=== PATIENT | male | born 1960 | race Hispanic/Latino ===

== ENCOUNTER 2016-06-10 14:41 | Outpatient (CLI) | payer OTHER ==
[2016-06-10 15:10] LABS: Hemoglobin A1c 6.4 % (4.0-6.0)
[2016-06-10 15:17] LABS: ALT (SGPT) 11 U/L (0-55); AST (SGOT) 13 U/L (5-34); Alkaline Phosphatase 56 U/L (40-150); Anion Gap 12 mmol/L (10-20); BUN (Urea Nitrogen) 16 mg/dL (8.4-25.7); Bilirubin, Total 0.3 mg/dL (0.2-1.2); Calc. Creatinine Clearance 0 mL/min (70-130); Calcium 9.1 mg/dL (7.8-10.44); Carbon Dioxide 25 mmol/L (22-29); Chloride 111 mmol/L (98-107); Estimated GFR-MDRD Greater than 90; Globulin 2.9 g/dL (2.4-3.5); LDL Cholesterol, Calculated 109 mg/dL
[2016-06-10 15:31] LABS: #Basophils 0.1 thou/uL (0.0-0.2); #Eosinphils 0.1 thou/uL (0.0-0.7); #Lymphocytes 1.5 thou/uL (1.20-3.40); #Monocytes 0.2 thou/uL (0.11-0.59); #Neutrophils 4.1 thou/uL (1.40-6.50); %Basophils 0.9 % (0.0-1.0); %Eosinophils 2.1 % (0.0-10.0); %Monocytes 3.6 % (0.0-10.0); Acanthocytes SLIGHT = 1-5 cells (100X) (None Seen); Elliptocytes SLIGHT = 2-5 cells (100X) (0-1/hpf); Hematocrit 28.8 % (42.0-52.0); Hypochromia SLIGHT = 6-15 cells (100X) (0-5/hpf); Mean Platelet Volume 5.8 fL (7.4-10.4); Microcytosis SLIGHT = 6-15 cells (100X) (0-5/hpf); Red Blood Cell (RBC) Count 3.63 mill/uL (4.70-6.10); White Blood Cell (WBC) Count 6.1 thou/uL (4.8-10.8)
== END 2016-06-10 14:42 ==
LOC: HPCALD 14:41
PROVIDERS: ATTEND Family Medicine
DX: E11.9 Type 2 diabetes mellitus without complications (principal); I10 Essential (primary) hypertension
CPT/HCPCS: 36415; 80053; 80061; 83036; 85025

== ENCOUNTER 2016-09-08 10:11 | Outpatient (CLI) | payer OTHER ==
[2016-09-08 17:13] LABS: Reticulocyte Count 1.7 % (0.5-1.5)
[2016-09-08 17:24] LABS: Iron 146 ug/dL (65-175); Iron Binding Capacity, Total 318 mcg/dL (261-462)
== END 2016-09-08 10:12 ==
LOC: HPCALD 10:11
PROVIDERS: ATTEND Family Medicine
DX: E11.9 Type 2 diabetes mellitus without complications (principal); D50.9 Iron deficiency anemia, unspecified
CPT/HCPCS: 36415; 82728; 83036; 83540; 83550; 85046

== ENCOUNTER 2016-09-09 10:18 | Outpatient (CLI) | payer OTHER ==
[2016-09-09 15:53] LABS: Eosinophils 2 % (0-10); Hemoglobin 11.2 g/dL (14.0-18.0); Lymphocytes 20 % (21-51); MDiff Complete? YES; Mean Corpuscular HGB CONC 31.6 g/dL (32.0-36.0); Mean Corpuscular Hemoglobin 29.2 pg (27.0-31.0); Mean Corpuscular Volume 92.4 fl (80.0-94.0); Mean Platelet Volume 5.4 fL (7.4-10.4); Monocytes 5 % (0-10); Neutrophil 73 % (42-75); PLT Morphology Comment Appears Adequate; Platelet Count 275 thou/uL (130-400); RBC Distribution Width 17.3 % (11.5-14.5); RBC Morphology Normal; Red Blood Cell (RBC) Count 3.83 mill/uL (4.70-6.10); White Blood Cell (WBC) Count 5.6 thou/uL (4.8-10.8)
== END 2016-09-09 10:19 | disposition home or self-care (01) ==
LOC: HPCALD 10:18
PROVIDERS: ATTEND Family Medicine
DX: D50.9 Iron deficiency anemia, unspecified (principal)
CPT/HCPCS: 36415; 85025

== ENCOUNTER 2016-12-09 10:26 | Outpatient (CLI) | payer OTHER ==
[2016-12-09 10:49] LABS: #Eosinphils 0.2 thou/uL (0.0-0.7); #Lymphocytes 1.7 thou/uL (1.20-3.40); #Monocytes 0.4 thou/uL (0.11-0.59); #Neutrophils 4.2 thou/uL (1.40-6.50); %Basophils 0.7 % (0.0-1.0); %Lymphocytes 26.4 % (21.0-51.0); %Monocytes 6.2 % (0.0-10.0); %Neutrophils 63.7 % (42.0-75.0); Hemoglobin 11.2 g/dL (14.0-18.0); Mean Corpuscular HGB CONC 33.9 g/dL (32.0-36.0); Mean Corpuscular Hemoglobin 32.7 pg (27.0-31.0); Mean Corpuscular Volume 96.6 fl (80.0-94.0); Mean Platelet Volume 5.9 fL (7.4-10.4); Platelet Count 287 thou/uL (130-400); RBC Distribution Width 12.4 % (11.5-14.5); Red Blood Cell (RBC) Count 3.41 mill/uL (4.70-6.10); White Blood Cell (WBC) Count 6.6 thou/uL (4.8-10.8)
[2016-12-09 11:10] LABS: ALT (SGPT) 16 U/L (8-55); AST (SGOT) 16 U/L (5-34); Albumin 4.2 g/dL (3.5-5.0); Alkaline Phosphatase 76 U/L (40-150); Anion Gap 14 mmol/L (10-20); BUN (Urea Nitrogen) 18 mg/dL (8.4-25.7); Bilirubin, Total 0.4 mg/dL (0.2-1.2); Calc. Creatinine Clearance 0 mL/min (70-130); Calcium 9.5 mg/dL (7.8-10.44); Carbon Dioxide 26 mmol/L (22-29); Chloride 108 mmol/L (98-107); Estimated GFR-MDRD 68; Globulin 2.8 g/dL (2.4-3.5); Glucose 147 mg/dL (70-105); Potassium 4.7 mmol/L (3.5-5.1); Sodium 143 mmol/L (136-145)
== END 2016-12-09 10:27 | disposition home or self-care (01) ==
LOC: HPCALD 10:26
PROVIDERS: ATTEND Family Medicine
DX: D50.9 Iron deficiency anemia, unspecified (principal); E11.9 Type 2 diabetes mellitus without complications; I10 Essential (primary) hypertension
CPT/HCPCS: 36415; 80053; 82728; 83036; 85025

== ENCOUNTER 2018-07-02 09:23 | Outpatient (CLI) | payer OTHER ==
--- NOTE | 2018-07-02 17:32 | RAD ---
LEFT FOOT THREE VIEWS: 07/02/18 No fracture was seen. There were no areas of bony destruction. The great toe appeared intact. Arteria l calcifications are evident on the dorsum of the foot. IMPRESSION: No acute bony findings. POS: HOME
== END 2018-07-02 09:24 | disposition home or self-care (01) ==
LOC: BURRAD 09:23
PROVIDERS: ATTEND Family Medicine
DX: L03.116 Cellulitis of left lower limb (principal)

== ENCOUNTER 2018-07-21 12:29 | Outpatient (CLI) | payer OTHER ==
--- NOTE | 2018-07-21 18:16 | ULT ---
LEFT LOWER EXTREMITY VENOUS ULTRASOUND: 07/21/18 Ultrasonography of the left lower extremity was performed for evaluation of swelling. All deep veins were freely compressible from groin to ankle. No echogenic clot was seen. There was normal doppler re sponse to augmentation maneuvers. IMPRESSION: No evidence of DVT. POS: HOME
== END 2018-07-21 12:30 | disposition home or self-care (01) ==
LOC: BURULT 12:29
PROVIDERS: ATTEND Family Medicine
DX: R60.0 Localized edema (principal)

== ENCOUNTER 2019-05-24 09:57 | Outpatient (CLI) | payer OTHER ==
--- NOTE | 2019-05-24 19:29 | RAD ---
CERVICAL SPINE: 05/24/19 AP, lateral, open mouth and swimmer's views were provided. No fracture, dislocation, or soft tissue s welling was seen. The C1 to dens distance is normal. There is some very minimal disc space narrowing at C5-C6 with some prominent anterior osteophytes at this level. There is probably some facet arthrit is in the lower cervical spine. IMPRESSION: Probable mild degenerative disc disease at C5-C6. Cross-sectional imaging would be helpful in confirm ing if there is any neurological implications of such. POS: HOME
== END 2019-05-24 09:58 | disposition home or self-care (01) ==
LOC: BURRAD 09:57
PROVIDERS: ATTEND Family Medicine
DX: M54.2 Cervicalgia (principal)
CPT/HCPCS: 72040

== ENCOUNTER 2020-05-11 15:00 | Emergency (ER) | payer OTHER | END 2020-05-11 15:41 | disposition home or self-care (01) | LOC: BURERS 15:00 | DX: U07.1 COVID-19 (principal); Z79.899 Other long term (current) drug therapy; Z79.84 Long term (current) use of oral hypoglycemic drugs; E78.5 Hyperlipidemia, unspecified; E78.00 Pure hypercholesterolemia, unspecified; E11.9 Type 2 diabetes mellitus without complications; I10 Essential (primary) hypertension | CPT/HCPCS: 99283 ==

== ENCOUNTER 2020-05-15 14:11 | Emergency (ER) | payer OTHER ==
[2020-05-15 15:01] LABS: #Lymphocytes 1.1 thou/uL (1.20-3.40); #Monocytes 0.4 thou/uL (0.11-0.59); #Neutrophils 6.1 thou/uL (1.40-6.50); %Basophils 0.3 % (0.0-1.0); %Eosinophils 0.1 % (0.0-10.0); %Lymphocytes 14.7 % (21.0-51.0); %Monocytes 5.8 % (0.0-10.0); %Neutrophils 79.2 % (42.0-75.0); Hemoglobin 10.5 g/dL (14.0-18.0); Mean Corpuscular HGB CONC 32.5 g/dL (32.0-36.0); Mean Corpuscular Hemoglobin 30.8 pg (27.0-31.0); Mean Corpuscular Volume 94.9 fL (78.0-98.0); Mean Platelet Volume 7.8 fL (7.4-10.4); Platelet Count 286 thou/uL (130-400); RBC Distribution Width 11.3 % (11.5-14.5); Red Blood Cell (RBC) Count 3.41 mill/uL (4.70-6.10); White Blood Cell (WBC) Count 7.7 thou/uL (4.8-10.8)
[2020-05-15 15:16] LABS: ALT (SGPT) 32 U/L (8-55); AST (SGOT) 34 U/L (5-34); Albumin 3.4 g/dL (3.5-5.0); Alkaline Phosphatase 62 U/L (40-110); Anion Gap 20 mmol/L (10-20); BUN (Urea Nitrogen) 33 mg/dL (8.4-25.7); Bilirubin, Total 0.4 mg/dL (0.2-1.2); CK (CPK) 51 U/L (30-200); Calc. Creatinine Clearance 0 mL/min (70-130); Calcium 8.4 mg/dL (7.8-10.44); Carbon Dioxide 18 mmol/L (22-29); Chloride 101 mmol/L (98-107); Globulin 3.2 g/dL (2.4-3.5); Glucose 119 mg/dL (70-105); Potassium 4.1 mmol/L (3.5-5.1); Protein, Total 6.6 g/dL (6.0-8.3); Sodium 135 mmol/L (136-145)
[2020-05-15] MEDS ORDERED: Sodium Chloride 0.9% 100 ML ONE (15:57)
[2020-05-15] MEDS ORDERED: Dexamethasone 10 MG/ML VIAL ONE (15:57)
[2020-05-15] MEDS ORDERED: Enoxaparin Sodium 100 MG/ML SYRINGE ONE (15:57)
[2020-05-15] MEDS ORDERED: Cefepime 2 GM VIAL ONE (15:57)
--- NOTE | 2020-05-15 17:22 | RAD ---
PORTABLE CHEST: 05/15/20 Comparison is made with a 02/15/18 study. This portable film at 1505 shows the beginnings of a few patchy infiltrates in the lower half of each lung and potentially in the left upper lobe. These are likely in keeping with the patient's known CO VID positivity. The heart is slightly larger than it was before but is still within normal limits for body habitus in AP projection. There are no congestive changes or pleural effusions. Faint calcifica tion is seen in the aortic arch. IMPRESSION: Several subtle but definite patchy infiltrates, left slightly more so than right. POS: HOME
== END 2020-05-15 17:51 | disposition short-term general hospital (02) ==
LOC: BURERS 14:11
DX: U07.1 COVID-19 (principal); N17.9 Acute kidney failure, unspecified; Z79.899 Other long term (current) drug therapy; Z79.84 Long term (current) use of oral hypoglycemic drugs; E78.5 Hyperlipidemia, unspecified; E78.00 Pure hypercholesterolemia, unspecified; I10 Essential (primary) hypertension
CPT/HCPCS: 36415; 36416; 71045; 80053; 82550; 83605; 84484; 85025; 87040; 96365; 96372; 96375; J0692; J1100; J1650; J3490

== ENCOUNTER 2022-12-23 09:48 | Emergency (ER) | payer BC | END 2022-12-23 10:35 | disposition home or self-care (01) | LOC: BURERS 09:48 | DX: I10 Essential (primary) hypertension (principal); E11.9 Type 2 diabetes mellitus without complications | CPT/HCPCS: 99283 ==

== ENCOUNTER 2023-06-03 17:48 | Outpatient (CLI) | payer BC | END 2023-06-03 17:49 | disposition home or self-care (01) | LOC: BURRAD 17:48 | PROVIDERS: ATTEND Family Medicine | DX: M54.41 Lumbago with sciatica, right side (principal); M54.42 Lumbago with sciatica, left side; E11.9 Type 2 diabetes mellitus without complications ==